=== PATIENT | male | born 1985 | race Caucasian/White ===

== ENCOUNTER 2021-12-21 19:30 | Emergency (ER) | payer BC ==
[~2021-12-21] VITALS: Ht 180.3 cm; Wt 72.6 kg
[2021-12-21 19:30] VITALS: BP 144/71
--- NOTE | 2021-12-21 19:30 | NUR ---
TO BED VIA GURNEY, BIBA WITH C/O DIFF OF BREATHING SAO2 100%
--- NOTE | 2021-12-21 20:27 | NUR ---
36 YO/M BIBA FROM HOME ACCOMPANIED BY W C/O OF DIFF BREATHING BEGINING AT 1845 TODAY, + DIZZYNESS. PT REPORTS SYMPTOMS HAVE RESOLVED AT THIS TIME AND RELATES SYMPTOMS TO POSSIBLY A PANIC ATTACK. PY DENIES ANY PAIN, CHEST PAIN, LOC, OR OTHER SYMPTOMS AT THIS TIME. PT LAYING IN BED LOCKED IN LOWEST POSITION W X2 SIDERAILS UP FOR PT SAFETY. AT BEDSIDE. VSS. 99% ON RA. PMH: GOUT, R KNEE RECONSTRUCTION SURGERY ALLERGIES: DENIES
--- NOTE | 2021-12-21 21:19 | NUR ---
DWAINE SWAB COLLECTED FROM PT NARES AND HANDED TO DAVID FROM LAB.
[2021-12-21 21:20] LABS: BASOPHILS % (AUTO) 0.1 % (0.0-2.0); EOSINOPHILS % (AUTO) 0.4 % (0.0-4.0); LYMPHOCYTES # (AUTO) 1.1 K/uL (2.0-11.5); LYMPHOCYTES % (AUTO) 11.2 % (20.5-51.1); MEAN CORPUSCULAR HEMOGLOBIN 29 pg (27-31); MEAN CORPUSCULAR HGB CONC 34 g/dL (33-37); MEAN CORPUSCULAR VOLUME 84.5 fL (80-94); MONOCYTES # (AUTO) 0.5 K/uL (0.8-1.0); MONOCYTES % (AUTO) 5.5 % (1.7-9.3); NEUTROPHILS # (AUTO) 8.2 K/uL (1.8-7.7); NEUTROPHILS % (AUTO) 82.8 % (42.2-75.2); PLATELET COUNT (AUTO) 195 K/uL (140-450); RED CELL DISTRIBUTION WIDTH 14.1 % (11.6-13.7); WHITE BLOOD COUNT (AUTO) 9.8 K/uL (4.8-10.8)
[2021-12-21 21:43] LABS: ALBUMIN 3.8 g/dL (3.4-5.0); ANION GAP 13.2 (8-16); CARBON DIOXIDE 26.6 mmol/L (21-32); CREATININE 1.3 mg/dL (0.6-1.3); POTASSIUM 3.8 mmol/L (3.5-5.1); TOTAL BILIRUBIN 0.4 mg/dL (0.0-1.0)
--- NOTE | 2021-12-21 21:43 | NUR ---
PT AMBULATED TO BATHROOM W STEADY GAIT. DENIES ANY DIZZYNESS.
--- NOTE | 2021-12-21 23:03 | NUR ---
PT REPORTS FEELING MUCH BETTER.
[2021-12-21 23:05] VITALS: BP 106/64
--- NOTE | 2021-12-21 23:05 | NUR ---
Patient discharged with v/s stable. Written and verbal after care instructions given and explained. Patient verbalized understanding. Ambulatory with steady gait. All questions addressed prior to discharge. Advised to follow up with PMD.
== END 2021-12-21 23:05 | disposition home or self-care (01) ==
LOC: MED 19:30
DX: R06.00 Dyspnea, unspecified (principal); Z20.822 Contact with and (suspected) exposure to COVID-19
CPT/HCPCS: 36415; 71045; 80053; 83880; 84484; 85025; 87426; 93005; 99284; Q0092